=== PATIENT | female | born 1950 | race Caucasian/White ===

== ENCOUNTER → 2020-03-19 | Outpatient (CLI) | payer OTHER ==
[~2020-03-19] MED LIST: ATIVAN2 MG PO; DIABETA 5 MG TAB5 MG PO; DULERA 200 MCG8.8 GM INH; FENOFIBRATE145 MG PO; GABAPENTIN800 MG PO; GLYBURIDE-METF1 EACH PO; INDERAL LA60 MG PO; LEVEMIR100 UNIT/1 SQ; LIPITOR TAB 2020 MG PO; METOCLOPRAMIDE10 MG PO; METOPROLOL SUCC25 MG PO; MIRTAZAPINE45 MG PO; MUCINEX600 MG PO; MYCOSTATIN CREA15 GM TOP; NEURONTIN 300300 MG PO; NITROSTAT0.4 MG SL; NORCO 5-325 TA1 EACH PO; PERCOCET 10-321 EACH PO; PERCOCET 7.5-31 EACH PO; REMERON45 MG PO; TOPROL XL50 MG PO; VICTOZA 1818 MG/3 ML SC; VICTOZA 1818 MG/3 ML SQ; VITAMIN D2000 UNIT PO; VITAMIN D5000 UNIT PO; ZOFRAN ODT 4 MG4 MG PO; ZOFRAN4 MG PO
[2020-03-19 15:03] LABS: HEMOGLOBIN 13.9 gm/dl (12.3-15.3); RED BLOOD COUNT 4.19 M/UL (4.00-5.10); WHITE BLOOD COUNT 9.7 K/UL (4.5-11.0)
[2020-03-19 15:33] LABS: BUN/CREATININE RATIO 32 (0-10)
== END ==
LOC: CT 14:13
PROVIDERS: Internal Medicine Hematology & Oncology
DX: C34.2 Malignant neoplasm of middle lobe, bronchus or lung (principal); F17.210 Nicotine dependence, cigarettes, uncomplicated; Z79.899 Other long term (current) drug therapy; N12 Tubulo-interstitial nephritis, not specified as acute or chronic
CPT/HCPCS: 36415; 71260; 80053; 85025; Q9967

== ENCOUNTER → 2020-05-26 | Outpatient (CLI) | payer OTHER | LOC: CT 05-14 13:00 | DX: C34.2 Malignant neoplasm of middle lobe, bronchus or lung (principal); F17.210 Nicotine dependence, cigarettes, uncomplicated; Z79.899 Other long term (current) drug therapy; R30.0 Dysuria; R59.0 Localized enlarged lymph nodes | CPT/HCPCS: 71260; J1642; Q9963 ==